=== PATIENT | female | born 1990 | race Caucasian/White ===

== ENCOUNTER → 2021-02-16 | Outpatient (CLI) | payer BC ==
[~2021-02-16] MED LIST: GLUCOPHAGE850 MG PO; LIPITOR TAB 1010 MG PO; MAGOX 400400 MG PO; PRINIVIL10 MG PO; PROTONIX40 MG PO; PROVENTIL HFA6.7 GM INH; RESTORIL30 MG PO; SYNTHROID25 MCG PO; VITAMIN D250000 UNIT PO
== END ==
LOC: EXRD 13:51
DX: M47.26 Other spondylosis with radiculopathy, lumbar region (principal); M54.6 Pain in thoracic spine; M47.814 Spondylosis without myelopathy or radiculopathy, thoracic region
CPT/HCPCS: 72070; 72100